=== PATIENT | male | born 1955 | race African-American/Black ===

== ENCOUNTER 2017-06-26 05:39 | Day surgery (SDC) | payer MEDICARE ==
[2017-06-25 17:09] LABS: BASOPHILS 0.3 % (0-2); EOSINOPHILS 3.7 % (0-7); HEMATOCRIT 33.3 % (42.0-54.0); HEMOGLOBIN 11.1 g/dL (13.5-17.5); IMMATURE GRANULOCYTES 0.3 % (0-5); MCH 28.4 pg (26.0-34.0); MCHC 33.3 g/dL (31.0-37.0); MCV 85.2 fL (80.0-100.0); MEAN PLATELET VOLUME 10.9 fL (7.4-10.4); MONOCYTES 5.3 % (2-11); NEUTROPHILS 73.4 % (40-80); PLATELET COUNT 317 10x3/uL (130-400); RBC 3.91 10x6/uL (4.20-6.10); RDW 13.8 % (11.5-14.5); WBC 11.5 10x3/uL (4.8-10.8)
[2017-06-25 17:20] LABS: APTT 24.1 SECONDS (22.8-39.4); INR 0.99 (0.85-1.17); PROTIME 12.7 SECONDS (11.6-15.0)
[2017-06-25 17:30] LABS: ANION GAP 20.7 mmol/L (8-16); CALCIUM 7.9 mg/dL (8.5-10.1); CARBON DIOXIDE 18.6 mmol/L (21.0-32.0); CREATININE - SERUM 6.8 mg/dL (0.6-1.3); POTASSIUM - SERUM 5.3 mmol/L (3.5-5.1)
[~2017-06-26] VITALS: Ht 172.7 cm; Wt 98.2 kg
--- NOTE | ~2017-06-26 | OP ---
PATIENT NAME: KI SALINAS MEDICAL RECORD: [id number] :54 LOCATION:[facility] ADMISSION DATE: SURGEON: BALTAZAR MARTINEZ MD DATE OF OPERATION: 06/26/2017 REFERRED BY: Dayanara Wolfe MD PREOPERATIVE DIAGNOSIS: Chronic kidney disease V. POSTOPERATIVE DIAGNOSIS: Chronic kidney disease V. OPERATION PERFORMED: Creation of a right brachiocephalic Mejia type arteriovenous fistula. SURGEON: Baltazar Martinez MD ANESTHESIA: Regional nerve block plus MAC per ORTHOPEDIC SURGEON. PREOPERATIVE NOTE: Mr. Salinas is a 61-year-old -[place] male with chronic kidney disease, who is anticipated to require dialysis. He is already status post creation of a brachiocephalic fistula in the left arm, which failed early. He is returned to the operating room to create a new one. We will go to the right arm as the patient's preference in addition to the fact that there is a very good antecubital vein visible after the nerve block. DESCRIPTION OF PROCEDURE: Under anesthesia in supine position, the patient was prepped and draped in sterile manner. I examined him with a duplex ultrasound using a proximal venous tourniquet and after application of nitroglycerin to the skin of the arm and forearm, the patient's antecubital vein and cephalic vein in the arm were very suitable for the fistula. The cephalic vein at the wrist was of good caliber, though the vein in the mid forearm really was not and I elected to go ahead with the more proximal brachiocephalic fistula. I made a transverse incision and exposed the median cubital vein and controlled it as needed with Silastic loops. The brachial artery was then exposed and dissected from the surrounding structures. Then, the 2 vessels were occluded, controlled, and approximated with doubly looped Silastic tapes. The vein was opened for approximately 6 mm and the vein was flushed proximally and distally with heparinized saline. I attempted to disrupt the valves in the vein distally by passing a 2 mm coronary artery dilator distally. This was partially successful. Irrigation then with heparinized saline distally into the vein was not really good enough to indicate or expectation for bidirectional fistula to develop. I made a corresponding arteriotomy and flushed the brachial artery proximally and distally with heparinized saline. The artery wall was quite thickened, thus an atherosclerosis and there was some mild or minimal calcification in the wall. The [id number]-mv-[id number] anastomosis was then performed with running 7-0 Prolene and after completed and release of the loops, flow was established immediately within the fistula and good continuous pulsatile Doppler signals were obtained in the fistula. There was continuous pulsatile flow in the proximal brachial artery and there was persistent flow in the distal brachial artery and at the wrist, there was a normal high resistance type polyphasic flow signal in the radial artery indicating forward flow and I could not detect an ulnar arterial Doppler signal. The patient's wound was closed with interrupted inverted 3-0 Vicryl and running OPERATIVE REPORT [id number] KI SALINAS intracuticular 4-0 Monocryl and the wound was sealed further with Dermabond glue and dressed with Cavilon skin prep, Maxorb Ag and Tegaderm. Awakened, he was then taken actually directly back to the outpatient department in a stable condition bypassing the recovery room. There was no blood loss during the procedure and all sponges, instruments, and needles were accounted for. No drain was used and no surgical specimen was submitted for histopathology. PLAN: The patient will be discharged to home today and an appointment made for him to return to see me in my office next week. He can leave the original operative dressing intact, he can wash over this with soap and water as desired and he was given a handwritten prescription for [place] 5/325, #15. He can take one p.o. q.4 hours p.r.n. pain. TRANSINT:[id number] Voice Confirmation ID: [id number] DOCUMENT ID: [id number] BALTAZAR MARTINEZ MD at 1511 CC: DAYANARA WOLFE MD [id number] DICTATION DATE: 06/26/17 1025 CALENDER MACHINE OPERATOR: 06/26/17 1210 [facility] 06/26/17 [facility] [address] [place] [address]
[~2017-06-26 05:39] MED LIST: BAYER CHEWABLE81 MG PO; HUMALOG MIX 50/53 ML SC; HYDRALAZINE HCL10 MG PO; K-DUR20 MEQ PO; LANTUS INSULIN10 ML SC; LASIX80 MG PO; LIPITOR20 MG PO; LISINOPRIL10 MG PO; NORVASC10 MG PO; OMEPRAZOLE40 MG PO; TENORMIN100 MG PO; ULTRAM50 MG PO
[2017-06-26 07:08] VITALS: BP 189/86; Ht 172.7 cm; Wt 98.2 kg
== END 2017-06-26 12:10 | disposition home or self-care (01) ==
LOC: D.OPS 05:39 → D.PAN 08:00 → D.OPS 08:00
PROVIDERS: Surgery
DX: I12.9 Hypertensive chronic kidney disease with stage 1 through stage 4 chronic kidney disease, or unspecified chronic kidney disease (principal); E11.22 Type 2 diabetes mellitus with diabetic chronic kidney disease; N18.4 Chronic kidney disease, stage 4 (severe); Z99.2 Dependence on renal dialysis; K21.9 Gastro-esophageal reflux disease without esophagitis; E03.9 Hypothyroidism, unspecified; Z01.812 Encounter for preprocedural laboratory examination

== ENCOUNTER 2018-06-29 06:57 | Day surgery (SDC) | payer MEDICARE ==
[~2018-06-29] VITALS: Ht 167.6 cm; Wt 94.5 kg
[~2018-06-29 06:57] MED LIST changes: -LISINOPRIL10 MG PO; +ZESTRIL40 MG PO
[2018-06-29 07:49] LABS: BASOPHILS 0.3 % (0-2); EOSINOPHILS 3.9 % (0-7); HEMATOCRIT 35.1 % (42.0-54.0); HEMOGLOBIN 11.7 g/dL (13.5-17.5); IMMATURE GRANULOCYTES 0.9 % (0-5); MCH 28.7 pg (26.0-34.0); MCHC 33.3 g/dL (31.0-37.0); MEAN PLATELET VOLUME 10.3 fL (7.4-10.4); MONOCYTES 7.2 % (2-11); NEUTROPHILS 67.7 % (40-80); PLATELET COUNT 298 10x3/uL (130-400); RBC 4.08 10x6/uL (4.20-6.10); RDW 13.8 % (11.5-14.5); WBC 11.5 10x3/uL (4.8-10.8)
[2018-06-29 08:00] LABS: INR 1.03 (0.85-1.17)
[2018-06-29 08:01] LABS: APTT 29.6 SECONDS (22.8-39.4)
[2018-06-29 08:10] LABS: ANION GAP 17.6 mmol/L (8-16); CALCIUM 8.4 mg/dL (8.5-10.1); CARBON DIOXIDE 23.3 mmol/L (21.0-32.0); CREATININE - SERUM 7.7 mg/dL (0.6-1.3); POTASSIUM - SERUM 3.9 mmol/L (3.5-5.1)
[2018-06-29] MEDS ORDERED: ELIQUIS2.5 MG PO (08:44)
[2018-06-29] MEDS ORDERED: ZYLOPRIM100 MG PO (08:44)
[2018-06-29 08:46] VITALS: BP 155/73; BMI 30.7
--- NOTE | 2018-06-29 16:21 | NUR ---
7126 CARLA LEDESMA APN PAGED.
--- NOTE | 2018-06-29 16:38 | NUR ---
1633 NAYLA LEDESMA APN NOTIFIED OF PT AWAITING A ROOM AND HOME MEDICATIONS WILL NEED TO BE CONTINUED AND MANAGED BY [facility]PHAROLOGY GROUP AND MAY NEED DIALYSIS TOMORROW. STATES DR. GAYTAN WILL COME SEE PT.
--- NOTE | 2018-06-29 17:07 | NUR ---
1700 RENAL ADA SUPPER TRAY SERVED.
--- NOTE | 2018-06-29 18:40 | NUR ---
1835 REPORT TO ERICA SWIFT TO 2129 BY HERI.
--- NOTE | 2018-06-29 19:00 | NUR ---
PATIENT ARRIVED FROM OUTPATIENT FOR OBSERVATION. PATIENT IS ALERT AND ORIENTED. RESPIRATIONS ARE EVEN AND UNLABORED. RIGHT ARM IN SLING. NO SWELLING OR BLEEDING FROM THE AXILLA AREA. NO S/S OF DISTRESS. NOP C/O PAIN. WILL CPOC.
--- NOTE | 2018-06-29 20:00 | NUR ---
PATIENT RIGHT ARM IN SLING. NO S/S OF BLEEDING OR SWELLING. PATIENT DENIES ANY PAIN.
[2018-06-29 20:40] VITALS: BP 152/67
--- NOTE | 2018-06-29 21:15 | NUR ---
ASSESSED PATIENT RIGHT ARM. RIGHT ARM REMAINS IN SLING. NO S/S OF BLEEDING OR SWELLING. NO C/O PAIN AT THIS TIME. WILL CPNTINUE TO MONITOR FOR BLEEDING AND SWELLING OF RIGHT ARM
--- NOTE | 2018-06-30 | NUR ---
ASSESSED PATIENT RIGHT ARM, NO S/S OF BLEEDING OR SWELLING. PT DENIES PAIN AT THIS TIME. WILL CPOC.
[2018-06-30 00:56] VITALS: BP 152/70
[2018-06-30 01:45] VITALS: BP 152/67; BMI 30.6
--- NOTE | 2018-06-30 02:02 | NUR ---
PATIENT RIGHT ARM IN SLING. NO SWEELING OR BLEEDING. PATIENT STAES HIS ARM IS SORE, BUT DENIES NEEDING PAIN MEDS. WILL CONTINUE TO MONITOR FOR SWELLING AND BLEEDING OF THE RIGHT ARM
--- NOTE | 2018-06-30 03:53 | NUR ---
ASSESSED PATIENT RIGHT ARM. RIGHT ARM IN SLING NO S/S OF BLEEDING OR SWELLING. PATIENT DENIES PAIN. WILL CONTINUE TO MONITOR FOR BLEEDING AND SWELLING IN RIGHT ARM.
[2018-06-30 06:09] VITALS: BP 163/74
--- NOTE | 2018-06-30 07:15 | NUR ---
REPORT RECIEVED AND MORNING ROUNDING COMPLETE. PT LAYING IN BED EYES CLOSED BREATHING EVEN AND LABORED. PT'S AT BEDSIDE. CALL LIGHT WITHIN REACH AND BED IN LOWEST POSITION.
[2018-06-30 08:06] VITALS: BP 195/75
--- NOTE | 2018-06-30 10:13 | NUR ---
DENIES NEEDS AT THIS THIS TIME. CALL LIGHT IN REACH. WILL CONT. PLAN OF CARE.
[2018-06-30 11:22] VITALS: BP 160/60
[2018-06-30 13:33] VITALS: Ht 167.6 cm; Wt 94.5 kg
--- NOTE | 2018-06-30 15:15 | NUR ---
DR. MARTINEZ CALLED AND CHECKED ON PT. HE SAID TO CALL AND FIND OUT WHAT THEY WERE DOING WITH PT. HE ALSO STATED TO HOLD ELIQUIS UNTIL THURSDAY.
[2018-06-30 15:40] VITALS: BP 189/85
[2018-06-30] MEDS ORDERED: CATAPRES0.1 MG PO (15:57)
--- NOTE | 2018-06-30 17:22 | NUR ---
PT DISCHARGED. PT AND I AND ALL REVIEWED DISCHARGE PAPERS AND THEY STATED THEY UNDERSTOOD AND SIGNED PAPERS. REMOVED PT'S RIGHT FOREARM PIV. NO BLEEDING NOTED. ASSISTED PT TO THE FRONT DOOR TO MEET HIS .
--- NOTE | 2018-07-03 17:01 | OP ---
PATIENT NAME: XAVI SALINAS MEDICAL RECORD: [id number] :54 LOCATION:[facility] ADMISS[facility] DATE: SURGEON: BALTAZAR MARTINEZ MD DATE OF OPERATION: 06/29/2018 REFERRING PHYSICIAN: Dayanara Wolfe MD PREOPERATIVE DIAGNOSES: Other mechanical complication of arteriovenous fistula in the right arm with a recurring cephalic arch stenosis. POSTOPERATIVE DIAGNOSES: Other mechanical complication of arteriovenous fistula in the right arm with a recurring cephalic arch stenosis. OPERATION PERFORMED: Fistulogram and balloon angioplasty of the cephalic arch stenosis, which was a pre-stent stenosis of the orifice of the cephalic arch, which had recurred and was very severe, 95% at least. Then, also open revision of AV fistula with turndown of the proximal cephalic vein on to the axillary vein. SURGEON: Baltazar Martinez MD ANESTHESIA: General with LMA per FUR COMBER. PREOPERATIVE NOTE: Xavi Salinas is a very nice 62-year-old -[place] male from [place], [place]. He is on hemodialysis 3 days a week with a right internal jugular tunneled dialysis catheter while we await resolution of his recurring problems with his right brachiocephalic fistula. He has a very hyperpulsatile fistula and has had a recurring stenosis in the cephalic arch. He has a Wallstent already in the cephalic arch, very close to the orifice, into the axillary vein, and it is there that he has had the most recent recurrent stenosis. I plan to do a fistulogram today and possibly dilate and I will consider stenting the lesion versus open turndown revision. DESCRIPTION OF PROCEDURE: Under general anesthesia, the patient was prepped and draped in sterile manner and with the arm abducted. A micropuncture technique was used to place a 4-Swiss catheter and we performed a fistulogram with digital subtraction technique, which revealed slow flow in the hyperpulsatile fistula and a very severe 95% diameter reducing stenosis right at the orifice of the cephalic arch and to the axillary vein. I subsequently dilated this with an 8-mm diameter balloon and was unable to achieve full effacement and a completion angiogram demonstrated a persistent 40% diameter stenosis. I was reluctant that stenting this open would have required placing a stent inside a stent and would have been at risk of compromising the axillary vein by protruding into it from the cephalic arch. I elected to proceed then with a turndown procedure. An incision was made over the proximal cephalic vein from the upper arm, medially across the deltopectoral groove and the vein was mobilized from the surrounding tissues and controlled as needed with vascular loops and clamps. An transverse axillary incision was made and the axillary vein isolated controlled with Silastic loops. The patient was given 3000 units of heparin and the vein was subsequently clamped. It was ligated and divided medially and the fistula was then flushed retrograde with heparinized saline and again clamped. The cephalic vein was pulled through a subcutaneous tunnel to the axilla where it was then anastomosed end-to-side of cephalic vein and to side of axillary vein, and this was done with running 6-0 Prolene. When completed and the vessel loops OPERATIVE REPORT [id number] XAVI SALINAS and clamps were released, excellent flow developed immediately in the rearranged fistula. There was minimal bleeding from the suture line. I did apply a bit of Fibrillar. I infiltrated the wounds with 0.25% Marcaine and closed the incisions with interrupted inverted 3-0 Vicryl and running intracuticular 4-0 Monocryl and Dermabond glue. The 6-Swiss introducer sheath puncture site was closed with a 4-0 Prolene and hemostasis obtained with a short period of gentle pressure, was then dressed with Ultrafoam and Tegaderm with Cavilon skin prep. The patient was then awakened from his anesthetic and in stable condition taken back to the recovery room. Blood loss during the operation was less than 25 cc, none was replaced. All sponges, instruments and needles were accounted for. No drain was used and no surgical specimen was submitted for histopathology. This was a fairly big operation and certainly there are risks of postoperative bleeding, so I plan to keep him in the hospital in observation overnight. Also, this will allow us to ascertain if his pain control regime is adequate. Probably, he can go home tomorrow after dialysis if he is comfortable and there has been no problems. I will plan to see him back in my office next week and remove the dressings and probably we can plan on using this fistula in about 2 weeks. TRANSINT:[id number] Voice Confirmation ID: [id number] DOCUMENT ID: [id number] BALTAZAR MARTINEZ MD at 1704 CC: DAYANARA WOLFE MD [id number] DICTATION DATE: 06/29/18 5807 [facility] HEAD: 06/29/18 1543 [facility] 06/30/18 [facility] [address] [place] [address]
== END 2018-06-30 17:27 | disposition home or self-care (01) ==
LOC: D.OPS 06:57 → D.M2 18:41 → D.OPS 06-30 17:27
PROVIDERS: Surgery
DX: T82.590A Other mechanical complication of surgically created arteriovenous fistula, initial encounter (principal); I87.1 Compression of vein; Z01.812 Encounter for preprocedural laboratory examination

== ENCOUNTER 2019-08-16 08:20 | Outpatient (CLI) | payer MEDICARE ==
[~2019-08-16] VITALS: Ht 170.2 cm; Wt 92.7 kg
--- NOTE | ~2019-08-16 | HEMODYNAMI ---
PATIENT:KI SALINAS MEDICAL RECORD: [id number] : 53 LOCATION:[facility] ADMISSION DATE: 08/16/19 Generatedon:08/16/201913:02 Patient name: KI SALINAS Patient #: [id number] SSN: : 1955 Date of study: 08/16/2019 Page: Of Hemodynamic Procedure Report Patient Data Patient Demographics Procedure consent was obtained First Name: KI Gender: Male Last Name: RITA : 1955 [facility] Initial: C Age: 63 year(s) Patient #: [id number] Race: Black Additional ID: [id number] Contact details Address: [place] [address] State: [place] City: [place] Zip code: [address] Past Medical History Allergies: No known allergies Admission Admission Data Admission Date: 08/16/2019 Admission Time: 8:20 Procedure Procedure Types Cath Procedure Peripheral Cath Diagnostic Procedure Abd/Extremity Extremities Bilat Lower Extremity Procedure Description Procedure Date Procedure Date: 08/16/2019 Procedure Start Time: 11:25 Procedure End Time: 13:02 Procedure Staff Name Function Freya Peterson MD Performing Physician SUSAN VENCES RT Monitor [place] RT Scrub Angela Landers RN Nurse Chichi De La Torre RN Nurse Procedure Data Cath Procedure Fluoroscopy Diagnostic fluoroscopy Total fluoroscopy Time: time: 21.3 min 21.3 min Diagnostic fluoroscopy Total fluoroscopy dose: 357 dose: 357 mGy mGy Contrast Material Contrast Material Type Amount (ml) Isovue 300 145 Entry Location Entry Primary Successful Side Size Upsize Upsize Entry Closure Succes sful Closure Location (Fr) 1 (Fr) 2 (Fr) Remarks Device Remarks Femoral Left 5 Fr 6 Fr 6 Fr Exoseal artery Long Long Diagnostic catheters Device Type Used For End Catheter Placement Pattern [employer] Cobra 2 4Fr 65CM catheter ([id number]) Procedure Medications Medication Administration Route Dosage Versed I.V. 1 mg Fentanyl I.V. 50 mcg Heparin Flush Bag added to field 3 bags (1000units/500ml NS) Lidocaine 1% added to field 20 Versed I.V. 1 mg Fentanyl I.V. 50 mcg Heparin Bolus I.V. 4000 units Heparin Bolus I.V. 2000 units Heparin Bolus I.V. 2000 units Heparin Bolus I.V. 1000 units Versed I.V. 0.5 mg Fentanyl I.V. 25 mcg Hydralizine I.V. 10 mg Hydralizine I.V. 10 mg Hemodynamics Rest Heart Rate: 79 (bpm) Snapshots Pre Cath Intra NCS Post Cath Vital Signs Time Heart Resp SPO2 etCO2 NIBP (mmHg) Rhythm Pain Sedation Rate (ipm) (%) (mmHg) Status Level (bpm) 11:05:53 78 3 100 0 Auto NIBP NSR 0 (11) 10(A) off , No pain 11:06:59 78 3 99 0 174/85(132) NSR 0 (11) 10(A) , No pain 11:11:25 78 33 98 22.4 173/88(126) NSR 0 (11) 10(A) , No pain 11:15:51 78 25 98 22.4 175/91(124) NSR 0 (11) 10(A) , No pain 11:20:20 78 23 98 23.2 174/87(136) NSR 0 (11) 10(A) , No pain 11:24:46 77 12 98 24.6 180/85(140) NSR 0 (11) 8(A) , No pain 11:29:18 85 20 98 23.2 159/77(119) NSR 0 (11) 8(A) , No pain 11:33:41 75 19 98 23.9 174/85(133) NSR 0 (11) 8(A) , No pain 11:38:11 75 15 98 26.9 169/79(126) NSR 0 (11) 8(A) , No pain 11:42:37 74 18 98 27.6 167/81(120) NSR 0 (11) 8(A) , No pain 11:47:03 74 19 98 20.2 161/79(122) NSR 0 (11) 8(A) , No pain 11:51:28 73 19 97 32.1 159/82(123) NSR 0 (11) 8(A) , No pain 11:55:52 71 23 98 26.1 176/77(120) NSR 0 (11) 8(A) , No pain 12:00:20 73 37 97 20.2 175/88(135) NSR 0 (11) 8(A) , No pain 12:04:48 74 24 97 22.4 176/83(130) NSR 0 (11) 8(A) , No pain 12:09:17 72 21 98 1.4 161/77(115) NSR 0 (11) 8(A) , No pain 12:13:41 71 18 97 24.6 165/79(128) NSR 0 (11) 8(A) , No pain 12:18:07 72 16 96 30.6 164/79(129) NSR 0 (11) 8(A) , No pain 12:22:34 72 20 98 29.9 165/79(125) NSR 0 (11) 8(A) , No pain 12:26:58 73 30 98 20.2 169/86(125) NSR 0 (11) 8(A) , No pain 12:31:24 72 44 98 24.6 173/84(132) NSR 0 (11) 8(A) , No pain 12:35:51 72 24 98 33.6 163/84(126) NSR 0 (11) 8(A) , No pain 12:40:15 73 19 97 14.2 153/82(120) NSR 0 (11) 10(A) , No pain 12:44:37 72 13 99 26.1 157/74(119) NSR 0 (11) 10(A) , No pain 12:49:01 73 10 99 147/75(125) NSR 0 (11) 10(A) , No pain 12:53:21 73 18 98 151/76(113) NSR 0 (11) 10(A) , No pain 12:57:41 75 14 99 157/72(113) NSR 0 (11) 10(A) , No pain 13:02:05 72 17 98 154/71(114) NSR 0 (11) 10(A) , No pain Medications Time Medication Route Dose Verified Delivered Reason Notes Ef fectiveness by by 11:22:42 Versed I.V. 1 mg Freya Cadet for sedation MD De La Torre RN 11:23:00 Fentanyl I.V. 50 M J Long Chichi for sedation mcg MD De La Torre RN 11:23:22 Heparin Flush added 3 M J Long M J Long used for Bag to bags MD OROZCO procedure (1000units/500ml field NS) 11:23:34 Lidocaine 1% added 20ml M J Long M J Long for local to vial MD OROZCO anesthetic field 11:35:25 Versed I.V. 1 mg M J Long Chichi for sedation MD De La Torre RN 11:35:33 Fentanyl I.V. 50 M J Long Chichi for sedation mcg MD De La Torre RN 11:54:23 Heparin Bolus I.V. 4000 M J Long Chichi Per units MD De La Torre RN physician 11:56:43 Heparin Bolus I.V. 2000 M J Long Chichi Per units MD Wil PRASAD physician 12:04:14 Heparin Bolus I.V. 2000 M J Long Chichi Per units MD Wil PRASAD physician 12:24:52 Heparin Bolus I.V. 1000 M J Long Angela Per units MD Anshul PRASAD physician 12:25:02 Versed I.V. 0.5 M J Long Angela for sedation mg MD Landers RN 12:25:13 Fentanyl I.V. 25 M J Long Angela for sedation mcg MD Landers RN 12:35:29 Hydralizine I.V. 10 mg M J Long Angela for MD Anshul PRASAD hypertension 12:36:53 Hydralizine I.V. 10 mg M J Long Angela for MD Anshul PRASAD hypertension Procedure Log Time Note 9:24:46 Use device set IR Diagnostic 9:24:47 ACIST Syringe (87944) opened to sterile field. 9:24:48 ACIST Hand Control (29921) opened to sterile field. 9:24:49 ACIST Manifold (40340) opened to sterile field. 9:24:49 Bag Decanter (2002S) opened to sterile field. 9:24:50 Sterile Angiographic Pack opened to sterile field. 9:24:50 Tegaderm 4 x 4 (1626W) opened to sterile field. 9:25:55 SHEATH 5FR [place] (WME829) opened to sterile field. 9:25:56 MICROPUNCTURE 4FR Cook (H41839) opened to sterile field. 9:25:56 DOC .035 wire (M58895) opened to sterile field. 9:25:56 MARMOLEJO 260 wire (O73867) opened to sterile field. 9:25:57 TUBING High Pressure Extension (IABP) opened to sterile field. 9:26:02 - 11:04:37 Angela Landers RN sent for patient. Start room use. 11:04:39 Time tracking: Regular hours (M-F 7:00 - 5:00) 11:04:52 Plan of Care:Hemodynamics will remain stable., Cardiac rhythm will remain stable., Comfort level will be maintained., Respiratory function will remain adequate., Patient/ family verbilizes understanding of procedure., Procedure tolerated without complication., Recovers from procedure without complications.. 11:04:58 Patient received from Outpatients to IR Alert and oriented. Tansferred to table in Supine position. 11:05:00 Signed procedure consent form obtained from patient. 11:05:01 Warm blankets applied, and nadira hugger turned on for patient comfort. 11:05:01 Correct patient and procedure confirmed by team. 11:05:02 ECG and BP/O2 sat monitors applied to patient. 11:05:33 - 11:05:41 H&P Date Dictated: 08/16/2019 H&P Addendum completed by physician on day of procedure. (MUST COMPLETE FOR ALL OUTPATIENTS). 11:05:42 Vital chart was started 11:05:43 Baseline sample Acquired. 11:05:45 Full Disclosure recording started 11:05:55 Pre-procedure instructions explained to patient. 11:05:56 Pre-op teaching completed and patient verbalized understanding. 11:05:58 Family in patients room. 11:06:00 Patient NPO since Midnight. 11:06:04 Patient allergic to No known allergies 11:06:07 Is the patient allergic to Iodine/contrast media? No. 11:06:11 Is patient on blood thinner?Yes. last dose 1 week ago 11:06:25 Patient diabetic? Yes. 11:06:26 If diabetic: On Metformin? No 11:06:29 - 11:06:30 ----Pre-sedation anethsthesia assessment.---- 11:06:46 Previous problem with sedation/anesthesia? Yes upset stomach 11:06:50 Snore? No 11:06:51 Sleep apnea? No 11:06:53 Deviated septum? No 11:06:56 Opens mouth fully? Yes 11:06:57 Sticks out tongue? Yes 11:07:00 Airway obstruction? No ? 11:07:03 - 11:07:38 Pre procedure: right dorsailis pedis pulse Doppler 11:07:40 Pre procedure: left dorsailis pedis pulse Doppler 11:07:47 Pre procedure: right posterior tibial pulse Doppler 11:07:50 Pre procedure: left posterior tibial pulse Doppler 11:07:58 IV patent on arrival in left forearm with 0.45%NaCl at [facility]. 11:08:07 Left groin area was prepped with chlora-prep and draped in sterile fashion 11:08:10 Alarms reviewed by Irma Carranza 11:08:12 Sharps counted by scrub and verified by Sarah 11:08:13 - ::30 Physician arrived ::33 --------ALL STOP TIME OUT------ :33 Final Timeout: patient, procedure, and site verified with staff and physician. All members of the team are in agreement. 11:22:42 Versed 1 mg I.V. was administered by Chichi De La Torre RN; for sedation; Verbal order read back and verified. 11:23:00 Fentanyl 50 mcg I.V. was administered by Chichi De La Torre RN; for sedation ; Verbal order read back and verified. 11:23:01 Angiodynamics Omniflush 5Fr 65cm ([id number]) opened to sterile field. 11:23:13 Left groin site verified by team. 11:23:17 5) <15 or on dialysis Very severe, or end stage kidney failure. 11:23:22 Heparin Flush Bag (1000units/500ml NS) 3 bags added to field was administered by Freya Peterson MD; used for procedure; Verbal order read back and verified. 11:23:34 Lidocaine 1% 20ml vial added to field was administered by Freya Peterson MD; for local anesthetic; Verbal order read back and verified. 11:24:48 Arterial access obtained using ultrasound guidance. 11:25:07 Procedure started. 11:25:13 Local anesthetic to left femerol artery with Lidocaine 1% by Freya Peterson MD.INITIAL ACCESS ONLY 11:25:50 Access obtained with 4Fr micropunture. 11:28:49 A 5 Fr sheath was inserted into the Left Femoral artery 11:29:20 DOC wire advanced. 11:33:41 GLIDE WIRE ANGLE 180cm (DH9958) opened to sterile field. 11:33:42 TORQUE DEVICE PLASTIC .038 ( TD01) opened to sterile field. 11:33:48 A Cook Cobra 2 4Fr 65CM catheter (C52763) was advanced over the wire. 11:35:25 Versed 1 mg I.V. was administered by Chichi De La Torre RN; for sedation; Verbal order read back and verified. 11:35:33 Fentanyl 50 mcg I.V. was administered by Chichi Wil RN; for sedation ; Verbal order read back and verified. 11:42:50 SHEATH 6FR Destination (RSR01) opened to sterile field. 11:42:50 CHOICE PT Extra Support J 300cm guide wire ([id number]) opened to steril e field. 11:43:51 Abdominal angiogram w/ runoff was performed. 11:44:08 GLIDE CATHETER 5FR COBRA 100cm (CG503) opened to sterile field. 11:50:11 Sheath upsized to a 6 Fr Long. 11:51:27 ROADRUNNER .035 145 glide wire (I92571) opened to sterile field. 11:51:27 CXI SUPPORT .035 135 CM STR catheter (A25423) opened to sterile field. 11:54:23 Heparin Bolus 4000 units I.V. was administered by Chichi De La Torre RN; Per physician; Verbal order read back and verified. 11:56:43 Heparin Bolus 2000 units I.V. was administered by Chichi De La Torre RN; Per physician; Verbal order read back and verified. 11:56:56 [place] SX-C Atherectomy catheter (THSSXC) opened to sterile field. 12:04:14 Heparin Bolus 2000 units I.V. was administered by Chichi De La Torre RN; Per physician; Verbal order read back and verified. 12:11:53 SHEATH 6FR Destination (RSR01) opened to sterile field. 12:11:54 INFLATOR BasixTOUCH (TG2187) opened to sterile field. 12:12:46 Sheath upsized to a 6 Fr Long. 12:24:52 Heparin Bolus 1000 units I.V. was administered by Angela Landers RN; Per physician; Verbal order read back and verified. 12:25:02 Versed 0.5 mg I.V. was administered by Angela Landers RN; for sedation; Verbal order read back and verified. 12:25:06 The NANOCROSS ELITE 2 X 120 X 150 ([id number]) was advanced to Undefined 1 and inflated. 12:25:13 Fentanyl 25 mcg I.V. was administered by Angela Landers RN; for sedation; Verbal order read back and verified. 12:35:29 Hydralizine 10 mg I.V. was administered by Angela Landers RN; for hypertension; Verbal order read back and verified. 12:36:21 SHEATH 6FR Brite Tip 35cm (905270E) opened to sterile field. 12:36:21 EXOSEAL 6Fr (EX600) opened to sterile field. 12:36:53 Hydralizine 10 mg I.V. was administered by Angela Landers RN; for hypertension; Verbal order read back and verified. 12:38:43 Sheath removed intact; hemostasis achieved with Exoseal to the Left Femoral artery. 12:40:02 Procedure ended.(Physican Out) 12:40:08 Fluoroscopy time 21.30 minutes. 12:40:17 Fluoroscopy dose: 357 mGy 12:40:17 Flurop Dose total: 357 12:40:24 Contrast amount:Isovue 300 145ml. 12:40:28 Insertion/operative site no bleeding no hematoma. 12:40:37 Femstop placed over the left femerol artery. Hemostasis achieved. 12:40:59 Post procedure instruction explained to patient.Patient verbalizes understanding. 12:41:01 Procedure and supply charges have been captured, reviewed, submitted an d are correct. 13:02:13 Vital chart was stopped 13:02:16 Procedure ended. 13:02:16 Full Disclosure recording stopped Intervention Summary Intervention Notes Time ActionType Lesion and Equipment Used Action# Pressure Duration Attributes 12:25:06 Discard NANOCROSS ELITE Balloon 2 X 120 X 150 ([id number]) Device Usage Item Name Manufacture Quantity Catalog Number [facility] Minimal Lot# / Charge Number Stock Stock Serial# Code ACIST Syringe Acist Medical 1 99328 [id number] 092564 847320 20 (94495) Systems Inc ACIST Hand Acist Medical 1 68335 889096 524390 941816 5 Control (97731) Systems Inc ACIST Manifold [employer]ist Medical 1 31751 542775 814143 457538 5 (23168) Systems Inc Bag Decanter Microtek 1 2001S 031753 78193 374162 5 (2001S) Medical Inc. Sterile Cardinal 1 [id number] 041740 917728 5 Angiographic Health Pack Tegaderm 4 x 4 3M 1 1626W 984933 681280 759886 5 (1626W) DOC Extension House 1 79002 619502 116047 613718 5 wire (91758) Vascular SHEATH 5FR Terumo 1 SKK193 927464 903986 907432 5 [place] (DVT999) MICROPUNCTURE [facility] 1 Z47209 145458 029506 453000 5 4FR Cook (U21140) DOC .[address] [facility] 1 D93938 325561 305392 5 (P20732) MARMOLEJO [address] [facility] 1 S94796 718109 27790 144246 5 (L31457) TUBING High [facility] 1 [id number] 633116 718063 144507 5 Pressure Extension (IABP) Angiodynamics Angiodynamics 1 41629262 419104 193353 019629 5 Omniflush 5Fr 65cm (65738358) TORQUE DEVICE [employer] 2 TD01 184982 147994 695595 5 PLASTIC .038 ( Scientific TD01) GLIDE WIRE ANGLE Terumo 1 TY1029 698520 260014 087450 5 180cm (PA5678) Cook Cobra [address] [facility] 1 V94553 593714 045392 5 65CM catheter (D45522) SHEATH 6FR Terumo 2 RSR01 041645 17769 820045 5 Destination (RSR01) CHOICE PT Extra [employer] 1 [id number] 422470 473586 757393 5 Support J 300cm Scientific guide wire (0544963O1) GLIDE CATHETER Terumo 1 CG503 253354 289578 5 5FR COBRA 100cm (CG503) ROADRUNNER .[address] [facility] 1 M14457 099930 635598 512648 5 145 glide wire (O65375) CXI SUPPORT .[address] [facility] 1 M78142 901244 417088 051904 5 135 CM STR catheter (E10100) [place] SX-C Medtronic 1 THS-SX-C 699892 940857 5 Atherectomy catheter (THSSXC) INFLATOR [facility] 1 PG3222 964408 922212 124218 5 BasixTOUCH (KL4903) NANOCROSS ELITE Medtronic 1 [id number] 059999 971565 494473 1 2 X 120 X 150 ([id number]) SHEATH 6FR Brite Cardinal 1 401324J 221652 576217 187364 1 Tip 35cm Health (010774R) EXOSEAL 6Fr Cardinal 1 EX600 853820 747102 722547 10 (EX600) Health Signature Audit [place] Stage Time Signature Unsigned Intra-Procedure 08/16/2019 SUSAN VENCES RT 1:02:38 PM (R) [facility] [address] [place] [address]
[~2019-08-16 08:20] MED LIST changes: +CATAPRES0.1 MG PO; +ELIQUIS2.5 MG PO; +ZYLOPRIM100 MG PO
[2019-08-16 09:13] LABS: BASOPHILS 0.5 % (0-2); EOSINOPHILS 4.5 % (0-7); HEMATOCRIT 29.2 % (42.0-54.0); HEMOGLOBIN 9.6 g/dL (13.5-17.5); IMMATURE GRANULOCYTES 0.4 % (0-5); LYMPHOCYTES 19.3 % (15-50); MCH 28.7 pg (26.0-34.0); MCHC 32.9 g/dL (31.0-37.0); MCV 87.4 fL (80.0-100.0); MEAN PLATELET VOLUME 9.7 fL (7.4-10.4); MONOCYTES 9.7 % (2-11); NEUTROPHILS 65.6 % (40-80); PLATELET COUNT 297 10x3/uL (130-400); RBC 3.34 10x6/uL (4.20-6.10); RDW 13.2 % (11.5-14.5); WBC 7.6 10x3/uL (4.8-10.8)
[2019-08-16 09:17] LABS: ANION GAP 12.6 mmol/L (8-16); CALCIUM 9.3 mg/dL (8.5-10.1); CARBON DIOXIDE 28.2 mmol/L (21.0-32.0); CREATININE - SERUM 10.2 mg/dL (0.6-1.3); POTASSIUM - SERUM 3.8 mmol/L (3.5-5.1)
[2019-08-16 09:26] LABS: APTT 30.9 SECONDS (22.8-39.4); INR 1.12 (0.85-1.17); PROTIME 14.4 SECONDS (11.6-15.0)
[2019-08-16] MEDS ORDERED: COREG25 MG PO (09:38)
[2019-08-16 09:45] VITALS: BP 230/102; Ht 170.2 cm; Wt 92.7 kg
--- NOTE | 2019-08-16 19:27 | NUR ---
1899 IV REMOVED AND PRESSURE HELD 1914 DISCHARGED HOME IN [facility] WITH INSTRUCTIONS
== END 2019-08-16 19:15 | disposition home or self-care (01) ==
LOC: D.SP 08:20 → D.RAD 10:00 → D.SP 10:00
PROVIDERS: Radiology Vascular & Interventional Radiology; ATTEND Internal Medicine Nephrology
DX: I70.201 Unspecified atherosclerosis of native arteries of extremities, right leg (principal); E11.9 Type 2 diabetes mellitus without complications; L98.9 Disorder of the skin and subcutaneous tissue, unspecified

== ENCOUNTER 2020-03-27 11:07 | Day surgery (SDC) | payer MEDICARE ==
[~2020-03-27] VITALS: Ht 170.2 cm; Wt 88.0 kg
--- NOTE | ~2020-03-27 | OP ---
PATIENT NAME: KI SALINAS MEDICAL RECORD: [id number] :53 LOCATION:D.OPS ADMISSION DATE: SURGEON: CARLOS LOAZDA DATE OF OPERATION: 03/27/2020 SURGEON: Carlos Lozada DPM PREOPERATIVE DIAGNOSIS: Osteomyelitis, first metatarsal, right foot. POSTOPERATIVE DIAGNOSIS: Osteomyelitis, first metatarsal, right foot. PROCEDURE: Excision of first metatarsal, right foot. ANESTHESIA: Local with monitored anesthesia care. HEMOSTASIS: Maintained on the field. ESTIMATED BLOOD LOSS: Minimal. MATERIALS: 3-0 Vicryl, 4-0 nylon. INJECTABLES: 10 cc of 0.5% bupivacaine plain. The patient has longstanding history of a diabetic foot disease involving the right foot. He has previously undergone a transmetatarsal amputation. The medial one-third of surgical site dehisced and the first metatarsal became exposed. Subsequently, an MRI was obtained and the first metatarsal was noted to be infected. He is here today for surgical resection of the infected bone. We have discussed all risks and benefits of the procedure. Complications were reviewed. All questions were answered. DESCRIPTION OF PROCEDURE: The patient was brought in the operating room and placed on the operating table in supine position. A timeout was called with Dr. Lozada, who identified the patient, surgical site, and surgery to be performed. Once appropriate anesthesia was obtained, the foot was prepped and draped in the usual aseptic manner. Excision of infected bone, right foot. Attention was directed to the medial aspect of the right foot where the stump of the first metatarsal was noted at the base of the wound. Utilizing a #15 blade, a 3 cm linear incision was made along the base of the first metatarsal. The incision was deepened through soft tissue with care being taken to retract all vital neurovascular structures. All bleeders were cauterized along the way. The periosteum was then reflected from the proximal one-third of the first metatarsal and the first metatarsal medial cuneiform joint was sharply entered with a 15-blade. All soft tissue attachments were then dissected free between the first metatarsal and the medial cuneiform. The entire residual stump was then excised from the foot and passed from the field. It was sent to pathology for further evaluation. Subsequent swab cultures of the wound were also obtained. The surgical site was then investigated for any remaining pathological tissue and none was noted. The surgical site was then irrigated with copious amounts of normal sterile saline via bulb syringe. No additional necrotic tissue was noted. It should be noted that the entire residual first metatarsal was noted to be soft upon inspection. OPERATIVE REPORT [id number] KI SALINAS The subQ structures were reapproximated and coapted using 3-0 Vicryl. The skin was reapproximated and coapted using 4-0 nylon. The cavity that was left from the excised bone was then filled with 1/4 inch iodoform packing. The foot was then dressed with Xeroform, 4 x 4's, Kerlix, and Tray bandage. The patient tolerated the procedure and anesthesia well. He left the operating room with vital signs stable and capillary refill time intact to the amputation site of the right foot. The patient tolerated procedure and anesthesia well. He will be discharged home with instructions to elevate the right foot. He has a wheelchair to further help offload the area. He is to use the wheelchair all times for mobility. He has my cell phone number for any after hour difficulties and he will follow up with him in 2 days. TRANSINT:[id number] Voice Confirmation ID: [id number] DOCUMENT ID: [id number] CARLOS LOZADA CC: [id number] DICTATION DATE: 03/27/20 160 [employer] SERV[employer] ENGINEER: 03/28/20 0054 [facility] 03/27/20 [facility] [address] [place] [address]
[~2020-03-27 11:07] MED LIST changes: +COREG25 MG PO; +HYDROCODON-ACE1 EAC7 PO; +PLAVIX75 MG PO; +PROSCAR5 MG PO; +ZOFRAN ODT4 MG/UDTAB PO
[2020-03-27 12:01] LABS: HEMATOCRIT 34.9 % (42.0-54.0); HEMOGLOBIN 11.5 g/dL (13.5-17.5); MCV 87.9 fL (80.0-100.0); MEAN PLATELET VOLUME 9.5 fL (7.4-10.4); RBC 3.97 10x6/uL (4.20-6.10); RDW 14.3 % (11.5-14.5); WBC 10.6 10x3/uL (4.8-10.8)
[2020-03-27 12:10] LABS: APTT 29.1 SECONDS (22.8-39.4)
[2020-03-27 12:11] LABS: CALCIUM 9.6 mg/dL (8.5-10.1); CARBON DIOXIDE 26.9 mmol/L (21.0-32.0); CREATININE - SERUM 9.7 mg/dL (0.6-1.3); POTASSIUM - SERUM 3.9 mmol/L (3.5-5.1); PROTIME 13.1 SECONDS (11.6-15.0)
[2020-03-27 12:55] VITALS: BP 197/77; Ht 170.2 cm; Wt 88.0 kg
== END 2020-03-27 16:30 | disposition home or self-care (01) ==
LOC: D.OPS 11:07
PROVIDERS: Anesthesiology; ATTEND Podiatrist
DX: M86.171 Other acute osteomyelitis, right ankle and foot (principal)